=== PATIENT | female | born 1945 | race Hispanic/Latino ===

== ENCOUNTER → 2025-06-29 | Day surgery (SDC) | payer MEDICARE ==
[~2025-06-29] MED LIST: DEXAMETHASONE SOD PHOS INJ 4 MG/ML SDV ONE; EPHEDRINE SULFATE INJ 50 MG/ML VIAL ONE; FENTANYL CITRATE/PF 100MCG/2 ML INJ ONE; LEVOFLOXACIN250 MG PO; LIDOCAINE HCL 2% LOCAL INJ 5 ML SDV VIAL INJ ONE; ONDANSETRON HCL INJ 2MG/ML 2ML 2 MG/ML VIAL ONE; PRED MILD5 ML OS; PROPOFOL IV EMULSION 10 MG/ML 20 ML VIAL ONE; SIMVASTATIN40 MG PO; SODIUM CHLORIDE15 M2; VIT D2 PO; VITAMIN D PO
[2025-06-29] MEDS: LACTATED RINGER'S 1,000 ML ONE (06:03)
[2025-06-29 10:30] VITALS: BP 168/77; PULSE 74; RESP 18; O2SAT 97
== END | disposition home or self-care (01) ==
LOC: OR 05:20
PROVIDERS: ATTEND Urology
DX: N20.0 Calculus of kidney (principal); Z93.6 Other artificial openings of urinary tract status; Z85.51 Personal history of malignant neoplasm of bladder; Z90.6 Acquired absence of other parts of urinary tract; M81.0 Age-related osteoporosis without current pathological fracture; Z79.899 Other long term (current) drug therapy; Z79.52 Long term (current) use of systemic steroids
CPT/HCPCS: 50431; 50590; 71046; J0690; J1100; J2003; J2405; J2704; J3010; J7121